=== PATIENT | male | born 1935 | race Caucasian/White ===

== ENCOUNTER 2017-08-20 10:57 | Outpatient (CLI) | payer MEDICARE, OTHER ==
[~2017-08-20] VITALS: Ht 175.3 cm; Wt 118.6 kg
--- NOTE | ~2017-08-20 | OP ---
PATIENT NAME: ALLIE JIMENES SR MEDICAL RECORD: [id number] :39 LOCATION:D.CAT ADMISSION DATE: SURGEON: AJ OVIEDO MD DATE OF OPERATION: 08/20/2017 PROCEDURE: Transesophageal Note. SEDATION: Via TIVA anesthesia. The transesophageal Omniplane probe was placed into the distal esophagus and proximal stomach without difficulty. FINDINGS: As follows, LVH is present. LV internal dimensions are dilated. 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 Aortic valve is well visualized, this is tricuspid with good valve excursion. There is mild plus AI by color flow imaging. Left atrium is obviously dilated. Left atrial appendage is well visualized with good contractility. Mitral valve is visualized with some stretching of the annulus, moderate in some views, moderate MR in most views by color flow imaging. Right-sided chambers are obviously dilated. Moderate TR. IMPRESSION: Cardiomyopathy. At this point in time, we will add Aldactone to the underlying medical regime. He will be seen in the office to test the effectiveness of the above. TRANSINT:[id number] Voice Confirmation ID: [id number] DOCUMENT ID: [id number] AJ OVIEDO MD at 1132 CC: [id number] DICTATION DATE: 08/20/17 1324 TANK DRIVER: 08/20/17 1338 DEP CLI 08/20/17 [facility] [address] [place] [address]
--- NOTE | ~2017-08-20 | HEMODYNAMI ---
PATIENT:ALLIE JIMENES MEDICAL RECORD: [id number] : 39 LOCATION:D.CAT ADMISSION DATE: 08/20/17 Generatedon:08/20/201713:30 Patient name: ALLIE JIMENES Patient #: [id number] SSN: : 1935 Date of study: 08/20/2017 Page: Of Hemodynamic Procedure Report Patient Data Patient Demographics Procedure consent was obtained First Name: ALLIE Gender: Male Last Name: JALIL Suffix: [facility] Initial: R : 1935 Patient #: [id number] Age: 82 year(s) Race: Unknown Additional ID: [id number] Contact details Address: [address] [place] [address] [place] [facility] Zip code: [address] Past Medical History Allergies: No known allergies Admission Admission Data Admission Date: 08/20/2017 Admission Time: 10:57 Admit Source: Other Procedure Procedure Types Cath Procedure Diagnostic Procedure KHADRA Procedure Description Procedure Date Procedure Date: 08/20/2017 Procedure Start Time: 13:11 Procedure End Time: 13:30 Procedure Staff Name Function All Becker MD Performing Physician Kit Kahn RT Monitor Mary Martínez RN Nurse Sudhir An CRNA Additional personnel Phillip Holland Police Manager Procedure Data Cath Procedure Fluoroscopy Diagnostic fluoroscopy Total fluoroscopy Time: 0 time: 0 min min Diagnostic fluoroscopy Total fluoroscopy dose: 0 dose: 0 mGy mGy Contrast Material Contrast Material Type Amount (ml) Isovue 300 0 Estimated blood loss: 0 ml Procedure Complications No complications Procedure Medications Medication Administration Route Dosage Oxygen NC 2 l/min Hurricaine Inez P.O. 1 Sprays Refer to Anesthesia Notes for Sedation Medications Hemodynamics Rest Heart Rate: 72 (bpm) Snapshots Pre Cath Intra NCS Post Cath Vital Signs Time Heart Resp SPO2 etCO2 NIBP (mmHg) Rhythm Pain Sedation Rate (ipm) (%) (mmHg) Status Level (bpm) 13:06:57 78 21 98 34.8 137/78(107) NSR 0 (11) 10(A) , No pain 13:11:17 72 15 98 27.2 123/67(103) NSR 0 (11) 10(A) , No pain 13:15:33 69 31 97 1.5 109/61(86) NSR 0 (11) 9(A) , No pain 13:19:51 69 25 100 21.2 107/55(84) NSR 0 (11) 9(A) , No pain 13:21:37 69 24 99 16.6 105/53(76) NSR 0 (11) 10(A) , No pain Medications Time Medication Route Dose Verified Delivered Reason Notes Effective ness by by 13:05:17 Oxygen NC 2 All Hernandez used for l/min St Klever Martínez RN procedure 13:05:27 Hurricaine P.O. 1 All Hernandez Per Inez Sprays St Klever Martínez RN physician 13:05:31 Refer to All Hernandez Anesthesia St Klever Martínez RN Notes for MD Sedation Medications Procedure Log Time Note 12:35:12 Informed consent obtained and on chart 12:35:20 Admit Source: Other 12:35:42 Diagnostic Cath status Elective 12:35:43 Time tracking: Regular hours (M-F 7:00 - 5:00) 12:35:47 Plan of Care:Hemodynamics will remain stable., Cardiac rhythm will remain stable., Comfort level will be maintained., Respiratory function will remain adequate., Patient/ family verbilizes understanding of procedure., Procedure tolerated without complication., Recovers from procedure without complications.. 12:37:47 Patient allergic to No known allergies 12:37:54 Lab results completed and on chart. 12:55:32 Mary Martínez RN sent for patient. Start room use. 12:55:42 Sudhir An CRNA present and monitoring patient for TIVA. 13:00:18 Patient received from Pre/Post Procedure Room to CCL 2 Alert and oriented. Tansferred to table in Supine position. 13:00:19 Warm blankets applied, and andrzej hugger turned on for patient comfort. 13:00:20 Correct patient and procedure confirmed by team. 13:00:34 ECG and BP/O2 sat monitors applied to patient. 13:00:35 Pre-procedure instructions explained to patient. 13:00:35 Pre-op teaching completed and patient verbalized understanding. 13:00:37 Family in waiting room. 13:05:17 Oxygen 2 l/min NC was administered by Mary Martínez RN; used for procedure; 13:05:27 Hurricaine Inez 1 Sprays P.O. was administered by Mary Martínez RN; Per physician; 13:05:31 Refer to Anesthesia Notes for Sedation Medications was administered by Mary Martínez RN; ; 13:05:38 Vital chart was started 13:06:22 Baseline sample Acquired. 13:06:26 Rhythm: paced 13:06:27 Full Disclosure recording started 13:06:42 H&P Date Dictated: 08/10/2017 Within 30 days and on chart., H&P Addendum completed by physician on day of procedure. (MUST COMPLETE FOR ALL OUTPATIENTS). 13:06:50 Is the patient allergic to Iodine/contrast media? No. 13:06:51 Is patient on blood thinner?No 13:06:52 Patient diabetic? Yes. 13:07:08 Previous problem with sedation/anesthesia? No ? 13:07:08 Snore? Yes 13:07:09 Sleep apnea? Yes 13:07:10 Deviated septum? No 13:07:10 Opens mouth fully? Yes 13:07:11 Sticks out tongue? Yes 13:07:12 Airway obstruction? No ? 13:07:14 Dentures? Yes out 13:07:28 Phillip Holland Tray Packer present for KHADRA. 13:07:48 IV patent on arrival in left hand with 0.9% NaCl at KVO. 13:07:50 Alarms reviewed by Jessica Mercado 13:07:52 Physician arrived 13:07:52 --------ALL STOP TIME OUT------ 13:07:53 Final Timeout: patient, procedure, and site verified with staff and physician. All members of the team are in agreement. 13:08:09 Physical assessment completed. ASA score P 3 - A patient with severe systemic disease as per All Becker MD. 13:08:12 Sedation plan: TIVA Medication:Propofol 13:11:52 Procedure started. 13:11:53 KHADRA started. 13:18:02 KHADRA completed. 13:18:27 Procedure ended.(Physican Out) 13:18:34 Fluoroscopy time 00.00 minutes. 13:18:37 Fluoroscopy dose: 0 mGy 13:18:37 Flurop Dose total: 0 13:18:40 Contrast amount:Isovue 300 0ml. 13:18:42 Sharps counted by scrub and verified by R.N. 13:19:25 Post-procedure physical assessment completed. ASA score P 3 - A patient with severe systemic disease as per All Becker MD. 13:20:03 Post procedure rhythm: unchanged. 13:20:10 Estimated blood loss: 0 ml 13:20:14 Post procedure instruction explained to patient.Patient verbalizes understanding. 13:20:15 Patient needs reinforcement of post procedure teaching. 13:20:31 Procedure and supply charges have been captured, reviewed, submitted and are correct. 13:20:33 Procedure Complication : No complications 13:30:12 See physician's report for complete and final results. 13:30:13 Report given to Pre/Post Procedure Room. 13:30:15 Patient transfered to Pre/Post Procedure Room with Stretcher. 13:30:17 Procedure ended. 13:30:17 Full Disclosure recording stopped 13:30:23 End room use (Document Last) Signature Audit Starlight Stage Time Signature Unsigned Intra-Procedure 08/20/2017 Kit Kahn 1:30:43 PM RT(R) Signatures Monitor : Kit Kahn RT Signature : Date : Time : [facility] [address] [place] [address]
[~2017-08-20 10:57] MED LIST: ASPIRIN 81 MG E81 MG PO; CORDARONE200 MG PO; COREG6.25 MG PO; ELIQUIS5 MG PO; EZFE 200200 MG PO; GLIMEPIRIDE PO; HYTRIN10 MG PO; HYZAAR 100-25 T1 TAB PO; K-TAB10 MEQ PO; LASIX20 MG PO; LEXAPRO20 MG PO; LIPITOR40 MG PO; LISINOPRIL-HCTZ1 T13 PO; MELATONIN 3 MG1 TAB; NITROSTAT0.4 MG SL; NORCO 5/325 TAB1 TA1 PO; NORVASC10 MG PO; OCUVITE PRESERV1 TAB PO; PLAVIX75 MG PO; SPIRIVA18 MCG INH; SYMBICORT 80-10.2 GM; ZANTAC150 MG PO; [UNRECOGNIZED DRUG - REMARK] INH
[2017-08-20] MEDS ORDERED: ZOCOR40 MG PO (11:20)
[2017-08-20 11:31] VITALS: BP 129/72; Ht 175.3 cm; Wt 118.6 kg
[2017-08-20 11:42] LABS: BASOPHILS 0.5 % (0-2); EOSINOPHILS 3.2 % (0-7); HEMATOCRIT 35.8 % (42.0-54.0); HEMOGLOBIN 11.7 g/dL (13.5-17.5); LYMPHOCYTES 28.2 % (15-50); MCH 30.6 pg (26.0-34.0); MCHC 32.7 g/dL (31.0-37.0); MCV 93.7 fL (80.0-100.0); MEAN PLATELET VOLUME 11.7 fL (7.4-10.4); NEUTROPHILS 56.1 % (40-80); RBC 3.82 10x6/uL (4.20-6.10); RDW 13.3 % (11.5-14.5); WBC 6.2 10x3/uL (4.8-10.8)
[2017-08-20 11:45] LABS: PLATELET COUNT 178 10x3/uL (130-400)
[2017-08-20 12:24] LABS: ANION GAP 12.8 mmol/L (8-16); CALCIUM 8.8 mg/dL (8.5-10.1); CARBON DIOXIDE 28.7 mmol/L (21.0-32.0); CREATININE - SERUM 1.4 mg/dL (0.6-1.3); POTASSIUM - SERUM 3.5 mmol/L (3.5-5.1)
[2017-08-20] MEDS ORDERED: ALDACTONE25 MG PO (13:41)
== END 2017-08-20 14:50 | disposition home or self-care (01) ==
LOC: D.CATH 10:57
PROVIDERS: Internal Medicine Cardiovascular Disease
DX: I42.9 Cardiomyopathy, unspecified (principal); I51.7 Cardiomegaly; Z01.812 Encounter for preprocedural laboratory examination

== ENCOUNTER → 2018-08-11 08:48 | Outpatient (CLI) | payer MEDICARE, OTHER ==
[2017-08-20 11:31] VITALS: BMI 38.6
[~2018-08-11 08:48] MED LIST changes: +ALDACTONE25 MG PO; +ZOCOR40 MG PO
== END | disposition home or self-care (01) ==
LOC: D.HCCARDIO 08:48
PROVIDERS: ATTEND Internal Medicine Cardiovascular Disease
DX: I25.10 Atherosclerotic heart disease of native coronary artery without angina pectoris (principal)

== ENCOUNTER 2018-09-09 06:44 | Outpatient (CLI) | payer MEDICARE, OTHER ==
[~2018-09-09] VITALS: Ht 175.3 cm; Wt 122.7 kg
--- NOTE | ~2018-09-09 | HEMODYNAMI ---
PATIENT:ALLIE JIMENES SR MEDICAL RECORD: [id number] : 39 LOCATION:[facility] ADMISSION DATE: 09/09/18 Generatedon:09/09/20188:58 Patient name: ALLIE JIMENES Patient #: [id number] SSN: : 1935 Date of study: 09/09/2018 Page: Of Hemodynamic Procedure Report Patient Data Patient Demographics Procedure consent was obtained First Name: ALLIE Gender: Male Last Name: JALIL Suffix: [facility] Initial: R : 1935 Patient #: [id number] Age: 83 year(s) Race: Unknown Additional ID: [id number] Contact details Address: [address] [place] [address] [place] [place] [facility] Zip code: [address] Past Medical History Allergies: No known allergies Admission Admission Data Admission Date: 09/09/2018 Admission Time: 6:44 Admit Source: Other Lab Results Lab Result Date: 09/09/2018 Lab Result Time: 0:00 Biochemistry Name Units Result Min Max BUN mg/dl 32 --(----)-* 7 18 Creatinine mg/dl 1.7 --(----)-* 0.6 1.3 CBC Name Units Result Min Max Hematocrit % 36.2 *-(----)-- 42 54 Hemoglobin g/dl 12.3 *-(----)-- 13.5 17.5 Procedure Procedure Types Cath Procedure Diagnostic Procedure LHC LHC w/Coronaries w/Grafts FFR/IVUS FFR Initial Sedation Charges Moderate Sedation up to 30 minutes Procedure Description Procedure Date Procedure Date: 09/09/2018 Procedure Start Time: 8:23 Procedure End Time: 8:56 Procedure Staff Name Function Winston Ludwig MD Performing Physician Kit Kahn RT Monitor Basia Osuna RT Scrub Tyrell Hurley RN Nurse Procedure Data Cath Procedure Fluoroscopy Diagnostic fluoroscopy Total fluoroscopy Time: 9.8 time: 9.8 min min Diagnostic fluoroscopy Total fluoroscopy dose: dose: 1815 mGy 1815 mGy Contrast Material Contrast Material Type Amount (ml) Isovue 370 97 Entry Location Entry Primary Successful Side Size Upsize Upsize Entry Closure Succes sful Closure Location (Fr) 1 (Fr) 2 (Fr) Remarks Device Remarks Femoral Right 5 Fr 6 Fr Exoseal artery Short Estimated blood loss: 10 ml Diagnostic catheters Device Type Used For End Catheter Placement MULTIPACK JL 4.0 5Fr Procedure catheter DIAGNOSTIC AR MOD 5Fr Procedure Catheter ([id number]) DIAGNOSTIC IM 5Fr Procedure catheter ([id number]) MULTIPACK Pigtail 5 Fr Procedure catheter Procedure Complications No complications Procedure Medications Medication Administration Route Dosage 0.9% NaCl I.V. 100 ml/hr Oxygen etCO2 Nasal cannula 2 l/min Heparin Flush Bag added to field 2 bags (1000units/500ml NS) Lidocaine 2% added to field 20 Versed I.V. 1 mg Fentanyl I.V. 25 mcg Fentanyl I.V. 50 mcg Heparin Bolus I.V. 5000 units Hemodynamics Rest HGB: 12.3 (g/dl) Heart Rate: 60 (bpm) Pressure Samples Time Site Value (mmHg) Purpose Heart Use Rate(bpm) 8:36 LV 119/12,21 Snapshot 60 8:38 AO 111/51(72) Pullback 60 8:38 LV 124/-3,18 Pullback 60 Gradients Valve Time Site 1 Site 2 Mean SEP/DFP Peak To Heart Use (mmHg) (sec/min) Peak Rate (mmHg) (bpm) Aortic 8:38 LV AO 13 60 124/-3,18 111/51(72) Calculations Valve P-P Mean Valve Index Valve Source Name Gradient Area Flow (cm2) Aortic 13 13 Snapshots Pre Cath Intra NCS Post Cath Vital Signs Time Heart Resp SPO2 etCO2 NIBP (mmHg) Rhythm Pain Sedation Rate (ipm) (%) (mmHg) Status Level (bpm) 8:13:10 60 23 98 26.8 126/100(112) Paced 0 (11) 10(A) , No pain 8:17:28 60 27 96 0 135/65(90) Paced 0 (11) 10(A) , No pain 8:21:44 60 26 96 1.4 128/62(101) Paced 0 (11) 10(A) , No pain 8:26:00 60 24 97 14.1 122/66(97) Paced 0 (11) 9(A) , No pain 8:30:14 60 21 94 14.9 117/63(94) Paced 0 (11) 9(A) , No pain 8:34:32 60 21 94 11.9 115/57(95) Paced 0 (11) 9(A) , No pain 8:38:46 60 20 93 1.4 107/58(93) Paced 0 (11) 9(A) , No pain 8:43:00 60 20 94 8.9 109/61(81) Paced 0 (11) 9(A) , No pain 8:47:14 60 21 93 11.2 111/55(80) Paced 0 (11) 9(A) , No pain 8:51:30 60 21 93 0 111/60(79) Paced 0 (11) 9(A) , No pain 8:55:44 69 21 92 0 112/64(89) Paced 0 (11) 9(A) , No pain Medications Time Medication Route Dose Verified Delivered Reason Notes Effectiveness by by 8:10:05 0.9% NaCl I.V. 100 Tyrell Tyrell Per physician ml/hr Xavi Hurley RN RN 8:10:16 Oxygen etCO2 2 Tyrell Tyrell for low 02 sats Nasal l/min Xavi Hurley cannula RN RN 8:10:28 Heparin Flush added 2 Tyrell Tyrell used for Bag to bags Xavi Hurley procedure (1000units/500ml field REID RN NS) 8:10:43 Lidocaine 2% added 20ml Tyrell Tyrell for local to vial Xavi Hurley anesthetic field REID RN 8:19:50 Versed I.V. 1 mg Tyrell Tyrell for sedation Xavi Hurley RN RN 8:19:59 Fentanyl I.V. 25 Tyrell Tyrell for sedation mcg Xavi Hurley RN RN 8:22:32 Fentanyl I.V. 50 Tyrell Tyrell for sedation mcg Xavi Hurley RN RN 8:43:51 Heparin Bolus I.V. 5000 Tyrell Tyrell for units Xavi Hurley anticoagulation RN community engagement specialist Log Time Note 7:51:15 Informed consent obtained and on chart 7:51:18 Admit Source: Other 7:51:30 Diagnostic Cath status Elective 7:51:31 Tyrell Hurley RN sent for patient. Start room use. 7:51:32 Time tracking: Regular hours (M-F 7:00 - 5:00) 7:51:35 Plan of Care:Hemodynamics will remain stable., Cardiac rhythm will remain stable., Comfort level will be maintained., Respiratory function will remain adequate., Patient/ family verbilizes understanding of procedure., Procedure tolerated without complication., Recovers from procedure without complications.. 8:00:20 Patient received from Pre/Post Procedure Room to CCL 2 Alert and oriented. Tansferred to table in Supine position. 8:00:32 Warm blankets applied, and andrzej hugger turned on for patient comfort. 8:00:37 Correct patient and procedure confirmed by team. 8:00:50 ECG and BP/O2 sat monitors applied to patient. 8:10:05 0.9% NaCl 100 ml/hr I.V. was administered by Tyrell Hurley RN; Per physician; 8:10:16 Oxygen 2 l/min etCO2 Nasal cannula was administered by Tyrell Hurley RN; for low 02 sats; 8:10:28 Heparin Flush Bag (1000units/500ml NS) 2 bags added to field was administered by Tyrell Hurley RN; used for procedure; 8:10:43 Lidocaine 2% 20ml vial added to field was administered by yTrell Hurley RN; for local anesthetic; 8:10:56 Vital chart was started 8:15:54 Baseline sample Acquired. 8:15:58 Rhythm: sinus rhythm , paced 8:16:11 Full Disclosure recording started 8:16:20 H&P Date Dictated: 09/07/2018 Within 30 days and on chart., H&P Addendum completed by physician on day of procedure. (MUST COMPLETE FOR ALL OUTPATIENTS). 8:16:21 Pre-procedure instructions explained to patient. 8:16:21 Pre-op teaching completed and patient verbalized understanding. 8:16:22 Family in waiting room. 8:16:23 Patient NPO since Midnight. 8:16:28 Patient allergic to No known allergies 8:16:30 Is the patient allergic to Iodine/contrast media? No. 8:16:31 Is patient on blood thinner?Yes 8:16:33 Patient diabetic? Yes. 8:16:34 If diabetic: On Metformin? Yes 8:16:37 If on Metformin: Last Dose? 09/06/2018 8:16:40 Previous problem with sedation/anesthesia? No ? 8:16:41 Snore? Yes 8:16:41 Sleep apnea? Yes 8:16:42 Deviated septum? No 8:16:42 Opens mouth fully? Yes 8:16:43 Sticks out tongue? Yes 8:16:46 Airway obstruction? Yes COPD 8:16:49 Dentures? Yes OUT 8:16:53 Pre procedure: right posterior tibial pulse 1+ Palpable, but thready & weak; easily obliterated 8:16:54 Patient pain scale 0/10 ?. 8:16:57 IV patent on arrival in left forearm with 0.9% NaCl at [facility]. 8:17:47 Lab Result : BUN 32 mg/dl 8:17:47 Lab Result : Creatinine 1.7 mg/dl 8:17:47 Lab Result : Hemoglobin 12.3 g/dl 8:17:47 Lab Result : Hematocrit 36.2 % 8:17:49 Lab results completed and on chart. 8:17:52 Right groin area was prepped with chlora-prep and draped in sterile fashion 8:17:53 Alarms reviewed by R. N. 8:17:54 Sharps counted by scrub and verified by R.N. 8:17:58 Use device set Femoral Dx 8:17:59 ACIST Syringe (35341) opened to sterile field. 8:17:59 Bag Decanter (2002S) opened to sterile field. 8:18:00 Medline Cath Pack ([id number]) opened to sterile field. 8:18:01 ACIST Hand Control (84452) opened to sterile field. 8:18:02 ACIST Manifold (02010) opened to sterile field. 8:18:03 Tegaderm 4 x 4 (1626W) opened to sterile field. 8:18:04 SHEATH 5FR [place] (LQT092) opened to sterile field. 8:18:05 DIAGNOSTIC WIRE .035 260cm J wire (634968) opened to sterile field. 8:18:06 DIAGNOSTIC Multipack 5Fr catheter set ([id number]) opened to sterile field. 8:18:12 Physician arrived 8:18:12 --------ALL STOP TIME OUT------ 8:18:13 Final Timeout: patient, procedure, and site verified with staff and physician. All members of the team are in agreement. 8:18:14 Right groin site verified by team. 8:18:17 Maximum allowable Isovue 300 dose 300ml. Physician notified. (300ml for normal creatinines. For patients with creatinine of 1.7 or higher multiply weight(kg) x 5 divided by creatinine.) 8:18:20 Fire Safety Assessment: A--An alcohol-based skin anteseptic being used preoperatively., C--Open oxygen or nitrous oxide is being used., D--An ESU, laser, or fiber-optic light is being used. 8:18:27 Physical assessment completed. ASA score P 2 - A patient with mild systemic disease as per Winston Ludwig MD. 8:18:29 Sedation plan: IV Moderate Sedation Medication:Versed, Fentanyl 8:18:35 Zero performed for pressure channel P1 8:19:50 Versed 1 mg I.V. was administered by Tyrell Hurley RN; for sedation; 8:19:59 Fentanyl 25 mcg I.V. was administered by Tyrell Hurley RN; for sedation; 8:22:32 Fentanyl 50 mcg I.V. was administered by Tyrell Hurley RN; for sedation; 8:23:19 Procedure started. 8:23:22 Local anesthetic to right femoral artery with Lidocaine 2% by Winston Ludwig MD.INITIAL ACCESS ONLY 8:23:55 A 5 Fr sheath was inserted into the Right Femoral artery 8:24:51 A MULTIPACK JL 4.0 5Fr catheter was advanced over the wire and used for Procedure. 8:26:20 LCA angiography performed. 8:27:04 Catheter exchanged over wire. 8:27:32 A DIAGNOSTIC AR MOD 5Fr Catheter ([id number]) was advanced over the wire and used for Procedure. 8:28:15 RCA angiography performed. 8:28:58 SVG to RCA angiography performed. 8:30:59 Catheter exchanged over wire. 8:31:09 A DIAGNOSTIC IM 5Fr catheter (512591A) was advanced over the wire and used for Procedure. 8:32:00 GLIDE WIRE ANGLE 260cm (CB2872) opened to sterile field. 8:34:01 OWENS to LAD angiography performed. 8:34:57 Catheter exchanged over wire. 8:35:03 A MULTIPACK Pigtail 5 Fr catheter was advanced over the wire and used for Procedure. 8:36:20 LV gram done using GOLDEN 8:36:24 Injector settings: Ml/sec: 10, Volume: 20, 8:36:31 LV hemodynamics recorded. 8:36:39 EF : 20 % 8:39:02 GUIDE 6FR AR 1.0 catheter ([id number]) opened to sterile field. 8:39:02 INFLATOR Merit BasixCompak (NG7347) opened to sterile field. 8:39:03 SHEATH 6FR [place] (AWL974) opened to sterile field. 8:39:13 [place] Verrata Plus pressure wire (36884L) opened to sterile field. 8:39:17 Catheter removed. 8:39:23 Sheath upsized to a 6 Fr Short. 8:41:39 6 Fr AR 1 guide catheter was inserted over the wire 8:42:56 FFR/IFR wire advanced. 8:43:51 Heparin Bolus 5000 units I.V. was administered by Tyrell Hurley RN; for anticoagulation; 8:45:39 TUBING High Pressure Extension Tubing (Oziel) ([id number]) opened to sterile field. 8:45:50 Wire advanced across lesion. 8:52:30 SVG TO RCA lesion measured at 0.94. with IFR 8:52:42 Wire removed. 8:52:45 Guide catheter removed. 8:52:53 EXOSEAL 6Fr (EX600) opened to sterile field. 8:53:02 Sheath removed intact; hemostasis achieved with Exoseal to the Right Femoral artery. 8:53:04 Procedure ended.(Physican Out) 8:53:14 Fluoroscopy time 09.80 minutes. 8:53:21 Fluoroscopy dose: 1815 mGy 8:53:21 Flurop Dose total: 1815 8:53:37 Contrast amount:Isovue 370 97ml. 8:53:41 Sharps counted by scrub and verified by R.N. 8:53:51 Insertion/operative site no bleeding no hematoma. 8:53:53 Post-op/insertion site Right Femoral artery dressed using a 4 x 4 and Tegaderm. 8:53:56 Post right femoral artery:stable, soft, clean and dry 8:55:33 Post Procedure Pulses reassessed and unchanged 8:55:35 Post-procedure physical assessment completed. ASA score P 2 - A patient with mild systemic disease as per Winston Ludwig MD. 8:55:36 Post procedure rhythm: unchanged. 8:55:39 Estimated blood loss: 10 ml 8:55:40 Post procedure instruction explained to patient.Patient verbalizes understanding. 8:55:40 Patient needs reinforcement of post procedure teaching. 8:56:22 Procedure type changed to Cath procedure, Diagnostic procedure, LHC, LHC w/Coronaries w/Grafts, FFR/IVUS, FFR Initial, Sedation Charges, Moderate Sedation up to 30 minutes 8:56:46 Procedure and supply charges have been captured, reviewed, submitted and are correct. 8:56:48 Procedure Complication : No complications 8:56:50 Vital chart was stopped 8:56:52 See physician's report for complete and final results. 8:56:53 Report given to Pre/Post Procedure Room. 8:56:55 Patient transfered to Pre/Post Procedure Room with Stretcher. 8:56:57 Procedure ended. 8:56:57 Full Disclosure recording stopped 8:57:04 End room use (Document Last) Device Usage Item Name Manufacture Quantity Catalog Hospital Part Current Minima l Lot# / Number Charge Number Stock Stock Serial# Code ACIST Acist 1 15666 470752 707053 120640 20 Syringe Medical (49449) Systems Inc Bag Microtek 1 2001S 335155 45061 230684 5 Decanter Medical Inc. () Medline Medline 1 [id number] 790191 29038 180446 5 Cath Pack ([id number]) ACIST Hand Acist 1 13476 395912 629372 075317 5 Control Medical (20370) Systems Inc ACIST Acist 1 33075 683714 006394 534540 5 Manifold Medical (53402) Systems Inc Tegaderm 4 3M 1 1626W 687514 488426 653131 5 x 4 (1626W) SHEATH 5FR Terumo 1 ELB656 418577 854500 405632 5 [place] (SKV475) DIAGNOSTIC St Mikie 1 662226 684312 759847 471939 30 WIRE .035 260cm J wire (274056) DIAGNOSTIC Cardinal 1 TQ0775 971597 13076 912615 30 Multipack Health 5Fr catheter set (EP8070) MULTIPACK Cardinal 1 107798 5 JL 4.0 5Fr Health catheter DIAGNOSTIC Cardinal 1 [id number] 483327 098343 020264 15 AR MOD 5Fr Health Catheter (198801J) DIAGNOSTIC Cardinal 1 [id number] 368821 551344 915037 5 IM 5Fr Health catheter (791832P) GLIDE WIRE Terumo 1 AZ6555 020314 969133 970307 5 ANGLE 260cm (KL4255) MULTIPACK Cardinal 1 130444 5 Pigtail 5 Health Fr catheter GUIDE 6FR Medtronic 1 [id number] 923145 72528 791081 1 AR 1.0 catheter (EF0HN44) INFLATOR Merit 1 CF5055 178771 718094 674224 15 Merit Medical BasixCompak (WB6892) SHEATH 6FR Terumo 1 MDO226 686781 178307 475476 40 [place] (WUJ953) Champlain Champlain 1 90534E 024021 967162299 516155 5 Verrata Plus pressure wire (46100G) TUBING High Merit 1 [id number] 702641 57727 554659 10 Pressure Medical Extension Tubing (Ludwig) ([id number]) EXOSEAL 6Fr Cardinal 1 EX600 551430 788800 145176 10 (EX600) Health Signature Audit Drayden Stage Time Signature Unsigned Intra-Procedure 09/09/2018 Kit Kahn 8:58:52 AM RT(R) Signatures Monitor : Kit Kahn RT Signature : Date : Time : [facility] [address] [place] [address]
[2018-09-09 07:12] VITALS: BP 119/67; Ht 175.3 cm; Wt 122.7 kg
[2018-09-09 07:25] LABS: BASOPHILS 0.3 % (0-2); EOSINOPHILS 2.4 % (0-7); HEMATOCRIT 36.2 % (42.0-54.0); HEMOGLOBIN 12.3 g/dL (13.5-17.5); IMMATURE GRANULOCYTES 0.3 % (0-5); LYMPHOCYTES 29.7 % (15-50); MCV 91.2 fL (80.0-100.0); MEAN PLATELET VOLUME 10.9 fL (7.4-10.4); MONOCYTES 10.7 % (2-11); NEUTROPHILS 56.6 % (40-80); PLATELET COUNT 155 10x3/uL (130-400); RBC 3.97 10x6/uL (4.20-6.10); RDW 13.2 % (11.5-14.5); WBC 6.4 10x3/uL (4.8-10.8)
[2018-09-09 07:40] LABS: ANION GAP 12.8 mmol/L (8-16); CARBON DIOXIDE 25.6 mmol/L (21.0-32.0); CREATININE - SERUM 1.7 mg/dL (0.6-1.3); POTASSIUM - SERUM 4.4 mmol/L (3.5-5.1)
--- NOTE | 2018-09-09 09:15 | NUR ---
PT RECEIVED VIA STRETCHER FROM [facility] POST PROCEDURE FOR RECOVERY. PT SLEEPING, BUT AROUSES TO VERBAL STIMULI. HR PACED AT 67, BP 125/62, O2 SAT 93 ON 2L/NC. 6FR EXOCELE TO R GROIN, DRESSING CDI NO BLEEDING OR HEMATOMA NOTED. R LEG PINK AND WARM, PEDAL PULSES PALPABLE. PT INSTRUCTED TO KEEP R LEG STRAIGHT AND HEAD ON PILLOW, HE VERBALIZED UNDERSTANDING. CALL LIGHT IN REACH
--- NOTE | 2018-09-09 09:31 | NUR ---
PT STILL SLEEPING, R GROIN SOFT DRESSING CDI. PEDAL PULSES PALPABLE. VSS. FAMILY AT BEDSIDE, CALL LIGHT IN REACH
--- NOTE | 2018-09-09 10:00 | NUR ---
PT RESTING COMFORTABLY, DENIES PAIN OR NEEDS AT THIS TIME. R GROIN DRESSING CDI NO BLEEDING OR SWELLING NOTED. LEG PINK AND WARM, PEDAL PULSES PALPALBE. FAMILY AT BEDSIDE AND CALL LIGHT IN REACH. VSS
--- NOTE | 2018-09-09 10:30 | NUR ---
PT MORE AWAKE, HE DENIES NAUSEA OR PAIN. GROIN SOFT TO TOUCH, NO BLEEDING OR HEMATOMA NOTED. PEDAL PULSES PALPABLE. CALL LIGHT IN REACH. DR PERRY IN AND SPOKE WITH PT AND REGARDING PROCEDURE RESULTS AND PLAN OF CARE.
--- NOTE | 2018-09-09 11:03 | NUR ---
PT RESTING W EYES CLOSED, VSS. GROIN DRESSING REMAINS CDI NO BLEEDING OR HEMATOMA NOTED. REMAINS AT BEDSIDE, CALL LIGHT IN REACH
--- NOTE | 2018-09-09 11:36 | NUR ---
PT AWAKE, DENIES PAIN OR DISCOMFORT. R GROIN REMAINS SOFT TO TOUCH, DRESSING CDI NO BLEEDING OR HEMATOMA NOTED. PEDAL PULSES PALPABLE. AT BEDSIDE, CALL LIGHT IN REACH
--- NOTE | 2018-09-09 12:03 | NUR ---
R GROIN DRESSING REMAINS CDI, NO BLEEDING OR HEMATONA NOTED. R LEG REMAINS PINK AND SOFT, PEDAL PULSES PALPABLE. HOB ELEVATED, SANDWICH AND COFFEE SERVED. PT DENIES PAIN OR ANY OTHER NEEDS AT THIS TIME. REMAINS AT BEDSIDE, CALL LIGHT IN REACH
--- NOTE | 2018-09-09 12:30 | NUR ---
PT SITTING UP IN BED WATCHING TV. DENIES PAIN OR DISCOMFORT. R GROIN DRESSING REMAINS CDI NO BLEEDING OR SWELLING NOTED. PEDAL PULSES PALPABLE. VSS.
--- NOTE | 2018-09-09 12:52 | NUR ---
IV REMOVED W CATH INTACT, MONITORS REMOVED. PT UP TO DRESS FOR DISCHARGE W ASSIST OF HIS .
--- NOTE | 2018-09-09 13:00 | NUR ---
DISCHARGE INSTRUCTIONS REVIEWED W PT AND , BOTH VERBALIZED UNDERSTANDING.
== END 2018-09-09 13:05 | disposition home or self-care (01) ==
LOC: D.CATH 06:44
PROVIDERS: ATTEND Internal Medicine Cardiovascular Disease
DX: I25.119 Atherosclerotic heart disease of native coronary artery with unspecified angina pectoris (principal); Z95.1 Presence of aortocoronary bypass graft; Z01.812 Encounter for preprocedural laboratory examination

== ENCOUNTER → 2018-09-28 14:41 | Outpatient (CLI) | payer MEDICARE, OTHER ==
[2018-09-09 07:12] VITALS: BMI 39.9
== END | disposition home or self-care (01) ==
LOC: D.HCCARDIO 14:00
PROVIDERS: ATTEND Internal Medicine Cardiovascular Disease
DX: I42.0 Dilated cardiomyopathy (principal)

== ENCOUNTER → 2018-10-27 17:36 | Outpatient (CLI) | payer MEDICARE, OTHER ==
[2018-09-09 07:12] VITALS: BMI 39.9
[2018-10-27 18:07] LABS: ANION GAP 13.5 mmol/L (8-16); CALCIUM 8.5 mg/dL (8.5-10.1); CARBON DIOXIDE 26.1 mmol/L (21.0-32.0); CREATININE - SERUM 1.4 mg/dL (0.6-1.3); POTASSIUM - SERUM 4.6 mmol/L (3.5-5.1)
== END | disposition home or self-care (01) ==
LOC: D.LABREF 17:36
PROVIDERS: ATTEND Internal Medicine Cardiovascular Disease
DX: I10 Essential (primary) hypertension (principal)

== ENCOUNTER → 2019-02-04 12:23 | Outpatient (CLI) | payer MEDICARE, OTHER ==
[2018-09-09 07:12] VITALS: BMI 39.9
== END | disposition home or self-care (01) ==
LOC: D.HCCECHO 12:23
PROVIDERS: ATTEND Internal Medicine Cardiovascular Disease
DX: I42.9 Cardiomyopathy, unspecified (principal)

== ENCOUNTER → 2020-07-05 10:04 | Outpatient (CLI) | payer MEDICARE, OTHER ==
[2018-09-09 07:12] VITALS: BMI 39.9
== END | disposition home or self-care (01) ==
LOC: D.HCCECHO 10:00
PROVIDERS: ATTEND Internal Medicine Cardiovascular Disease
DX: I25.10 Atherosclerotic heart disease of native coronary artery without angina pectoris (principal)